=== PATIENT | female | born 1960 | race Caucasian/White ===

== ENCOUNTER 2018-07-23 09:28 | Inpatient (IN) | payer BC, OTHER ==
[2018-07-23 09:45] LABS: #Basophils 0.1 thou/uL (0.0-0.2); #Eosinphils 0.3 thou/uL (0.0-0.7); #Lymphocytes 2.1 thou/uL (1.20-3.40); #Monocytes 0.5 thou/uL (0.11-0.59); #Neutrophils 1.9 thou/uL (1.40-6.50); %Basophils 1.2 % (0.0-1.0); %Lymphocytes 43.6 % (21.0-51.0); %Monocytes 9.5 % (0.0-10.0); %Neutrophils 39.7 % (42.0-75.0); Hemoglobin 13.4 g/dL (12.0-16.0); Mean Corpuscular HGB CONC 33.5 g/dL (32.0-36.0); Mean Corpuscular Hemoglobin 30.8 pg (27.0-31.0); Mean Corpuscular Volume 91.8 fL (78.0-98.0); Mean Platelet Volume 7.6 fL (7.4-10.4); Platelet Count 230 thou/uL (130-400); RBC Distribution Width 11.3 % (11.5-14.5); Red Blood Cell (RBC) Count 4.35 mill/uL (4.20-5.40); White Blood Cell (WBC) Count 4.7 thou/uL (4.8-10.8)
[2018-07-23 09:52] LABS: PTT 33.1 SEC (22.9-36.1)
[2018-07-23] MEDS ORDERED: Succinylcholine Chloride 20 MG/ML 10 ml SYRINGE FS ONE (09:52)
[2018-07-23] MEDS ORDERED: Glycopyrrolate 0.2 MG/ML 5 ML SYRINGE ONE (09:52)
[2018-07-23] MEDS ORDERED: Rocuronium Bromide 10 MG/ML (10ML VIAL) ONE (09:52)
[2018-07-23] MEDS ORDERED: Ondansetron PF 4 MG/2 ML Vial ONE (09:52)
[2018-07-23] MEDS ORDERED: ePHEDrine 50 MG/ML VIAL ONE (09:52)
[2018-07-23] MEDS ORDERED: PROPOFOL 200 MG/20 ML VIAL ONE (09:52)
[2018-07-23] MEDS ORDERED: Lidocaine 1% PF 5 ML VIAL ONE (09:52)
[2018-07-23 10:01] LABS: ALT (SGPT) 11 U/L (8-55); AST (SGOT) 21 U/L (5-34); Albumin 4.2 g/dL (3.5-5.0); Alkaline Phosphatase 44 U/L (40-150); Anion Gap 13 mmol/L (10-20); BUN (Urea Nitrogen) 20 mg/dL (9.8-20.1); Bilirubin, Total 0.7 mg/dL (0.2-1.2); CK (CPK) 99 U/L (29-168); Calc. Creatinine Clearance 0 mL/min (70-130); Calcium 9.7 mg/dL (7.8-10.44); Carbon Dioxide 24 mmol/L (22-29); Chloride 105 mmol/L (98-107); Estimated GFR-MDRD 70; Glucose 81 mg/dL (70-105); Potassium 4.4 mmol/L (3.5-5.1); Protein, Total 7.2 g/dL (6.0-8.3); Sodium 138 mmol/L (136-145)
--- NOTE | 2018-07-23 10:08 | CT ---
CT HEAD WITH AND WITHOUT CONTRAST WITH CT PERFUSION IMAGES: Date: INDICATION: Dense right hemiparesis. CTA from [facility] revealed a left M1 thrombus. Patient was ref erred here for perfusion study prior to intervention. FINDINGS/IMPRESSION: CT HEAD WITHOUT CONTRAST: There is sulcal effacement and mild cytotoxic edema involving the left frontal and parietal lobes, pr imarily in the parasylvian region, indicating early changes of infarct. No hemorrhage or mass effect. CT PERFUSION: CTA perfusion studies were performed with IV contrast. Mean transit images show images of ischemic involving left frontal and parietal lobes. The degree of ischemia involves significant portion of the left cerebral hemisphere and the left middle cerebral ar sandhya distribution. The blood volume images indicate infarct. There is evidence of infarct primarily involving the left f rontal lobe in the parasylvian locations and portions of the left parietal lobe cortex. When the penumbra is assessed as difference between blood volume and mean transit, there appears to b e significant penumbra primarily involving the left parietal lobe cortex. Findings were discussed with Dr. Chavis. CODE CR. POS: [facility]
[2018-07-23] MEDS ORDERED: Mag-Al 1200 mg/1200 mg/30 ML UDCUP PO PRN (10:56)
[2018-07-23] MEDS ORDERED: Labetalol HCl 100 MG/20 ML VIAL SLOW IVP PRN (10:56)
[2018-07-23] MEDS ORDERED: [UNRECOGNIZED DRUG - REMARK] FS SCH (10:56)
[2018-07-23] MEDS ORDERED: Acetaminophen 325 MG TAB PO PRN (10:56)
--- NOTE | 2018-07-23 11:17 | PRG ---
DATE OF SERVICE: 07/23/2018 SUBJECTIVE: Ms. Arauz is a 57-year-old female, who presented to the [facility] [place] [facility] with right dense hemiparesis. Her last known normal at that time was 12 hours. She underwent a noncontrast head CT, which was negative for hemorrhage. She then underwent a CT angiogram, which revealed presence of occlusion of the left middle cerebral artery on the left side. She was then transferred to [facility] for mechanical thrombectomy. At that time, she underwent a CT perfusion study which showed salvageable penumbra. She was then sent down to the orthodontic lab technician, where she was intubated and subsequently underwent mechanical thrombectomy with orthodoxy of blood flow. At this time, we have limited medical history. She will be transferred to the ICU. I have consulted the hospitalist service for appropriate medical management and stroke risk stratification. CT examination is planned for later this afternoon. Job ID: [id number]
[2018-07-23] MEDS ORDERED: Iopamidol 370 76% 100 ML VIAL ONE (11:21)
[2018-07-23] MEDS ORDERED: Aspirin 300 MG Suppository PR SCH (12:00)
[2018-07-23] MEDS: Sodium Chloride 0.9% 1,000 ML IV SCH ×2 (12:39→23:33)
[2018-07-23] MEDS: Multivitamins, Adult 10 ML, Folic Acid 1 MG, Thiamine HCl 100 MG in Dextrose 5 %-0.45 %... IV SCH (14:19)
--- NOTE | 2018-07-23 14:23 | CON ---
DATE OF CONSULTATION: Consultation from Dr. Joshua Chavis. PRIMARY CARE PROVIDER: Unknown. REASON FOR CONSULTATION: Post thrombectomy of left middle cerebral artery. HISTORY OF PRESENT ILLNESS: The patient was nonverbal at 6:00 a.m. Significant other thought she was just tired. After 7:00, he checked she was still not verbal even though she was awake. EMS was called. She was taken [facility], life-flighted here, underwent thrombectomy by Dr. Joshua Chavis. She is currently in intensive care unit. She is awake. Her eyes are open. The only associated symptom is one of the witnesses said she seemed to be mildly confused about something yesterday, but was not aphasic and showed no focal neurologic defects. REVIEW OF SYSTEMS: Otherwise unobtainable. The patient is nonverbal and the informants present are unaware of any problems she was having. PAST MEDICAL HISTORY: Pertinent for hypertension, seasonal allergies, anxiety, depression, gastroesophageal reflux disease. She is currently on lisinopril 20/25 once a day, estradiol 0.5 mg a day, Protonix 40 mg a day, Celexa 40 mg a day. ALLERGIES: NO ALLERGIES. PAST SURGICAL HISTORY: Right shoulder surgery 2 years ago. FAMILY AND SOCIAL HISTORY: She is an [facility], all of her family, except for her children who live there. There is some conversation that the strokes run on her father's side. She has two daughters here with no medical diseases. The patient has a significant other, Cristian Maza. Her oldest daughter, Cora Arauz, is the responsible alliance party at this time. Her code status is full. The patient's smoking history; she smoked from 15 to 44, but has not smoked in the last 13 years. She drinks 6-pack of beers a day. No illicit drugs. PHYSICAL EXAMINATION: VITAL SIGNS: Current blood pressure 124/83, pulse 60, respirations 16, O2 saturation of 100. HEENT: Examination of her head, eyes, ears, nose, and throat revealed pupils equal, round, and reactive. Extraocular movements grossly intact, but there does not seem to be full motion to the right as to the left. Sclerae are white. Tympanic membranes are clear. Nose is clear. Oral mucous membranes are wet. I could not get her to open her mouth for better exam. NECK: No jugular venous distention, adenopathy, or thyromegaly. CHEST: Clear to auscultation and percussion. HEART: Has a regular rate and rhythm. First and second heart sounds are clear. There are no appreciated murmurs or gallops. ABDOMEN: Soft. Bowel sounds are normal. There is no hepatosplenomegaly. No mass. No rebound. No bruits. EXTREMITIES: Reveal no cyanosis, clubbing, or edema. SKIN: Warm and dry without bruises or rash. HEME/LYMPH: There is no tender or swollen lymph nodes in the axilla, inguinal, or cervical area. No petechial hemorrhages. PULSES: Carotid, radial, femoral, and dorsalis pedis pulses intact. NEUROLOGIC: There is question of a mild central 7th on the right. The right arm has minimal tone and does not seem to move much spontaneously. Left arm has good tone, moves spontaneously. Deep tendon reflexes are symmetric. Tone in both right and left leg seem to be the same. She has downgoing toes bilateral to plantar response. She has receptive and expressive aphasia. DIAGNOSTIC STUDIES: EKG reveals regular sinus rhythm. She has [address] elevation consistent with early repolarization syndrome, otherwise normal, reviewed by me. CTA of the head and neck; there was edema of the left parieto-frontal lobes, reviewed by me. LABORATORY DATA: Metabolic profile is normal. INR is normal. White count is 4.7, platelet count is 230,000, hemoglobin is 13.4. CURRENT MEDICATIONS: Aspirin 325 mg p.o. daily, Lipitor 40 mg p.o. daily. She is on labetalol for blood pressure control, less than 100 diastolic and less than 180 systolic. ADMITTING DIAGNOSES: Left middle cerebral artery cerebrovascular accident, post embolectomy; receptive and expressive aphasia; hypertension; anxiety; depression; alcohol abuse. 1. Thank you for the consult. We will follow with you. 2. Because of her alcohol use, we will monitor for withdrawal syndrome. Banana bag will be started daily now. Continue aspirin. Transition antihypertensives to p.o. as tolerated. She will, of course, need a swallowing study by Speech Therapy before proceeding with oral medicines. Job ID: [id number]
[2018-07-23] MEDS ORDERED: ISOVUE-370 76%-LOCM 1 ML ONE (14:27)
--- NOTE | 2018-07-23 16:13 | CT ---
FCT brain noncontrast: 07/23/2018 3:59 PM HISTORY: 57-year-old female with acute left middle cerebral artery large territorial cerebral infarction. Rece ntly status post thrombectomy via catheter. Dr. Mathews reported the findings by telephone to Dr. Jass wolfe at 4:03 PM on 07/15/2018 COMPARISON: 07/23/2018 9:34 AM noncontrast portion of CT FINDINGS: There is a new ill-defined, moderately dense approximately 2 cm focus of acute intra-axial hemorrhage in the left basal ganglia. Nearby, there is acute subarachnoid spillage of hemorrhage in the left sy lvian fissure. There has been slight interval progression of diffuse effacement of sulcal markings th roughout much of the left cerebral hemisphere due to cytotoxic edema. New finding of mild indentation upon the lateral aspect of the frontal horn of the left lateral ventricle by component of acute infa rction at the left caudate head.. No obstructive hydrocephalus. No midline shift. IMPRESSION: 1. Evolution of acute large left middle cerebral artery territory cerebral infarction, with mild inte rval worsening of effacement of sulci due to cytotoxic edema. 2. Hemorrhagic conversion of the infarction at the left basal ganglia, plus some spillage of blood in to the left sylvian fissure subarachnoid space. 3. No subfalcine herniation.
--- NOTE | 2018-07-23 20:22 | CON ---
DATE OF CONSULTATION: 07/23/2018 CONSULTING PHYSICIAN: Hospitalist Service. IMPRESSION: Left middle cerebral artery stroke with improving right hemiparesis and residual expressive aphasia. PLAN: 1. Aspirin. 2. Statin. 3. Echocardiogram. 4. Follow clinical course. HISTORY OF PRESENT ILLNESS: Ms. Arauz is a 57-year-old, healthy, middle-aged woman, who presented with acute onset of right-sided weakness and expressive aphasia. She was taken to [facility] by Dr. Chavis and underwent thrombectomy. She has shown improvement in her right arm strength. Her reports she is initially flaccid and now she has antigravity strength. Her followup CT scan of the brain has been performed, but the results are pending. PAST MEDICAL HISTORY: Hypertension. ALLERGIES: NONE REPORTED. SOCIAL HISTORY: She has a distant history of tobacco use. FAMILY HISTORY: Positive. REVIEW OF SYSTEMS: Not obtainable due to her aphasia. PHYSICAL EXAMINATION: GENERAL: She is a healthy-appearing middle-aged woman, in no acute distress. VITAL SIGNS: Pulse 64, respirations 16, blood pressure 98/57. HEENT: Pupils are equal. Conjunctivae are clear. Oral pharynx clear. NECK: Supple. EXTREMITIES: No cyanosis, clubbing, or edema. NEUROLOGIC: She is alert and cooperative. She is completely expressively aphasic. She followed commands in appropriate fashion though. Cranial nerves appear to be intact. Motor exam showed antigravity strength in both arms without drift. Gait was not testable. No abnormal movements were seen. Plantar responses were downgoing. LABORATORY DATA: EKG shows normal sinus rhythm. SUMMARY: Unfortunate middle-aged woman, who has a thrombus in the left MCA vessel resulting in her deficits. The underlying cause is a bit unknown at this point, could have been a congenital stenosis versus very localized thrombosis. Agree with current management. Job ID: [id number]
[2018-07-23] MEDS: Atorvastatin Calcium 40 MG TAB PO SCH (20:24)
[2018-07-24] MEDS: Sodium Chloride 0.9% 1,000 ML IV SCH (04:36)
[2018-07-24 05:08] LABS: Cardiac Risk 2.9 (Less than 4.5)
[2018-07-24 05:30] LABS: Anion Gap 11 mmol/L (10-20); BUN (Urea Nitrogen) 10 mg/dL (9.8-20.1); Calc. Creatinine Clearance 87 mL/min (70-130); Calcium 8.5 mg/dL (7.8-10.44); Carbon Dioxide 22 mmol/L (22-29); Chloride 111 mmol/L (98-107); Estimated GFR-MDRD 75; Glucose 106 mg/dL (70-105); Potassium 3.8 mmol/L (3.5-5.1); Sodium 140 mmol/L (136-145)
--- NOTE | 2018-07-24 06:59 | PRG ---
DATE OF SERVICE: 07/24/2018 SUBJECTIVE: Ms. Arauz is one day status post mechanical thrombectomy for a left middle cerebral artery occlusion secondary to thrombus. She has made a dramatic recovery as compared to her baseline state. She had evidence of reperfusion hemorrhage on yesterday's CT scan, that was repeated this morning, which shows normal evolution of the hemorrhagic products with no evidence for additional bleeding. She does have an area of hypodensity suggestive of infarct as well. I believe this is an asymptomatic reperfusion hemorrhage given the overall dramatic improvement in her exam. She continues to struggle predominantly with expressive aphasia, but she does have some components of receptive aphasia as well. She has good strength bilaterally in the upper and lower extremities, which is a substantial improvement over her strength level at the time of admission. She should undergo further swallow evaluation today. From my perspective, she can be transferred out of the unit to the stroke unit. She should start to mobilize with the aid of physical therapy. She should also have speech therapy as well. Job ID: [id number]
--- NOTE | 2018-07-24 07:39 | CT ---
CT OF THE BRAIN WITHOUT CONTRAST: Date: 07/24/18 INDICATION: Status post thrombectomy and CVA. COMPARISON: Prior CT of the brain dated 07/23/18. FINDINGS: There is intraparenchymal hemorrhage seen within the region of the anterior left globus pallidus servando uring 1.8 cm. This is stable since the prior exam. There is subarachnoid hemorrhage seen within the l eft sylvian fissure. There is also some mild subarachnoid hemorrhage involving the sulci overlying th e left frontoparietal cortex. There is hypodensity with loss of godinez-white differentiation involving portions of the left frontal cortex, anterior left insular cortex, and anterior left temporal lobe an d portions of the anterior left parietal lobe. There is also hypodensity involving the left caudate l obe. Findings are all suspicious for changes of evolution of the left MCA distribution infarct. There is also cytotoxic edema causing some mild sulcal effacement of the left frontal and parietal cortex. No hydrocephalus or midline shift is evident. Basilar cisterns remain patent. There is mucosal thick ening within the ethmoid air cells which is stable. IMPRESSION: 1. Evolutionary changes of the large left MCA distribution infarct. 2. Stable intraparenchymal hemorrhage involving the left basal ganglia. 3. Stable subarachnoid hemorrhage within the left sylvian fissure and sulci of the left frontopariet al region. POS: [facility]
[2018-07-24] MEDS ORDERED: Acetaminophen 650 MG Suppository PR PRN (08:20)
[2018-07-24] MEDS ORDERED: Eucerin (Mineral Oil/Petrolatum,White) 30 gm Jar TOP PRN (08:20)
[2018-07-24] MEDS ORDERED: Artificial Tears 18 DROP/0.9 ML EA EYE PRN (08:20)
[2018-07-24] MEDS ORDERED: Sodium Chloride 0.65% Nasal 44 ML BOT EA NARE PRN (08:20)
[2018-07-24] MEDS ORDERED: Bisacodyl 10 MG SUPP PR PRN (08:20)
[2018-07-24] MEDS ORDERED: Aspirin 300 MG Suppository PR SCH (09:00)
[2018-07-24] MEDS: Aspirin 325 mg Enteric Coated Tablet PO SCH (10:36)
[2018-07-24] MEDS: Aspirin 300 MG Suppository PR SCH (10:37)
[2018-07-24] MEDS: Multivitamins, Adult 10 ML, Folic Acid 1 MG, Thiamine HCl 100 MG in Dextrose 5 %-0.45 %... IV SCH (10:37)
--- NOTE | 2018-07-24 10:40 | PDOC.PN ---
- Subjective Encounter Start Date: 07/24/18 Encounter Start Time: 09:00 -: old records requested/rev pt is doing ok, as per she has much improvement, she has aphasia, her weakness improving, she passed swallow evaluation - Objective MAR Reviewed: Yes Vital Signs & Weight: Vital Signs (12 hours) Temp Pulse Ox 07/24/18 08:30 96 07/24/18 08:00 98 07/24/18 03:00 98.2 F 07/23/18 23:00 98.3 F Weight Weight 157 lb 6.561 oz Most Recent Monitor Data Heart Rate from ECG 75 NIBP 143/83 NIBP BP-Mean 103 Respiration from ECG 25 SpO2 93 I&O: 07/23/18 07/24/18 07/25/18 06:59 06:59 06:59 Intake Total 1819 Output Total 750 230 Balance 1069 -230 Result Diagrams: 07/23/18 09:32 07/24/18 04:24 Radiology Reviewed by me: Yes (CT brain reviewed) EKG Reviewed by me: Yes (NSR) Phys Exam - Physical Examination Constitutional: NAD HEENT: PERRLA, moist MMs, sclera anicteric Neck: no JVD, supple Respiratory: no wheezing, no rales, no rhonchi Cardiovascular: RRR, no significant murmur, no rub Gastrointestinal: soft, non-tender, no distention, positive bowel sounds Musculoskeletal: no edema, 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 Neurological: moves all 4 limbs Lymphatic: no nodes Psychiatric: normal affect Skin: no rash, normal turgor Dx/Plan (1) Left acute arterial ischemic stroke, MCA (middle cerebral artery) Code(s): I63.512 - CEREB INFRC D/T UNSP OCCLS OR STENOS OF LEFT MID CEREB ART Status: Acute (2) Anxiety and depression Code(s): F41.9 - ANXIETY DISORDER, UNSPECIFIED; F32.9 - MAJOR DEPRESSIVE DISORDER, SINGLE EPISODE, UNSPECIFIED Status: Chronic (3) Dyslipidemia Code(s): E78.5 - HYPERLIPIDEMIA, UNSPECIFIED Status: Chronic (4) GERD (gastroesophageal reflux disease) Code(s): K21.9 - GASTRO-ESOPHAGEAL REFLUX DISEASE WITHOUT ESOPHAGITIS Status: Chronic (5) Hypertension Code(s): I10 - ESSENTIAL (PRIMARY) HYPERTENSION Status: Chronic - Plan cont current plan of care, plan discussed w/ family, PT/OT, speech therapy, DVT proph w/SCDs * once neurosurgeon OK, will transfer to stroke floor * continue stroke team evaluation * discussed with * medication reviewed as below * symptomatic treatment * may need rehab on discharge * will adjust BP meds. * start diet when neurosurgery OK Review of Systems - Review of Systems ENT: negative: Ear Pain, Ear Discharge, Nose Pain, Nose Discharge, Nose Congestion, Mouth Pain, Mouth Swelling, Throat Pain, Throat Swelling, Other Respiratory: negative: Cough, Dry, Shortness of Breath, Hemoptysis, SOB with Excertion, Pleuritic Pain, Sputum, Wheezing Cardiovascular: negative: chest pain, palpitations, orthopnea, paroxysmal nocturnal dyspnea, edema, light headedness, other Gastrointestinal: negative: Nausea, Vomiting, Abdominal Pain, Diarrhea, Constipation, Melena, Hematochezia, Other Genitourinary: negative: Dysuria, Frequency, Incontinence, Hematuria, Retention , Other Musculoskeletal: negative: Neck Pain, Shoulder Pain, Arm Pain, Back Pain, Hand Pain, Leg Pain, Foot Pain, Other Neurological: Change in Speech. negative: Weakness, Numbness, Incoordination, Confusion, Seizures, Other - Medications/Allergies Allergies/Adverse Reactions: Allergies Allergy/AdvReac Type Severity Reaction Status Date / Time No Known Allergies Allergy Verified 07/23/18 12:45 Medications: Current Medications Acetaminophen (Tylenol) 650 mg PO Q6H PRN PRN Reason: Headache/Fever/Mild Pain (1-3) Acetaminophen (Tylenol) 650 mg AK Q4H PRN PRN Reason: Fever > 101 Al Hydroxide/Mg Hydroxide (Maalox) 30 ml PO QID-WM PRN PRN Reason: Dyspepsia Artificial Tears (Tears Naturale) 2 drop EA EYE PRN PRN PRN Reason: Dry Eyes Aspirin (Ecotrin) 325 mg PO DAILY [facility] Last Admin: 07/24/18 10:36 Dose: 325 mg Aspirin (Aspirin) 300 mg AK DAILY [facility] Last Admin: 07/24/18 10:37 Dose: Not Given Atorvastatin Calcium (Lipitor) 40 mg PO HS [facility] Last Admin: 07/23/18 20:24 Dose: Not Given Bisacodyl (Dulcolax) 10 mg AK DAILYPRN PRN PRN Reason: Constipation Nicardipine HCl 25 mg/ Sodium (Chloride) 260 mls @ 0 mls/hr IVPB INF PRN; Protocol PRN Reason: SBP > 180 or DBP > 105 Sodium Chloride (Normal Saline 0.9%) 1,000 mls @ 80 mls/hr IV .[id number] [facility] Last Admin: 07/24/18 04:36 Dose: 1,000 mls Multivitamins 10 ml/ Folic Acid 1 mg/ Thiamine HCl 100 mg / Dextrose/Sodium Chloride 1,011.2 mls @ 250 mls/hr IV Q24HR [facility] Last Admin: 07/24/18 10:37 Dose: 1,011.2 mls Labetalol HCl (Normodyne) 10 mg SLOW IVP Q2H PRN PRN Reason: SBP > 180 or DBP > 105 Mineral Oil/White Petrolatum (Eucerin Cream) 0 gm TOP BIDPRN PRN PRN Reason: Dry Skin Sodium Chloride (Flush - Normal Saline) 10 ml IVF Q12HR [facility] Last Admin: 07/23/18 20:24 Dose: 10 ml Sodium Chloride (Flush - Normal Saline) 10 ml IVF PRN PRN PRN Reason: Saline Flush Sodium Chloride (Cameron Nasal Becket 0.65%) 0 ml EA NARE QIDPRN PRN PRN Reason: Nasal Congestion
--- NOTE | 2018-07-24 16:39 | CON ---
DATE OF CONSULTATION: 07/24/2018 SERVICE: Pulmonary Medicine. REASON FOR CONSULT: ICU patient. HISTORY OF PRESENT ILLNESS: The patient is a 57-year-old white female with past medical history significant for hypertension. She was in her usual state of health until she had an abrupt onset of neurologic symptoms. She became nonverbal. She also had left-sided weakness. She presented to the emergency department. She was inside of a window for thrombectomy. As such, she proceeded with that procedure. This was a successful procedure. All that being said, she has persistent neurologic deficits on the left side, and is having difficulties with speech. She cannot provide much in the way of history. Prior to this event, she did not have any fevers, chills, shortness of breath, cough, sputum production, or night sweats. PAST MEDICAL HISTORY: 1. Hypertension. 2. Anxiety disorder. 3. Major depressive disorder. 4. Gastroesophageal reflux disease. 5. Seasonal allergies. 6. History of CVA. PAST SURGICAL HISTORY: 1. Right shoulder surgery 2 years ago. 2. Right MCA thrombectomy. ALLERGIES: NO KNOWN DRUG ALLERGIES. MEDICATIONS: List of her inpatient medications was reviewed. No specific updates were made at this time. FAMILY HISTORY: Noncontributory. SOCIAL HISTORY: She has about a 69-[id number] history of smoking, but quit over 10 years ago. She drinks 6 pack on a daily basis. Otherwise, she denies any illicit drugs. She has no exposure to chemicals, dust, asbestos, or tuberculosis. REVIEW OF SYSTEMS: General; head, ears, eyes, nose, and throat; cardiovascular; respiratory; GI; ; musculoskeletal; neurologic; and skin are negative except as mentioned in the HPI. PHYSICAL EXAMINATION: VITAL SIGNS: Afebrile, pulse 72, blood pressure 157/82, respirations 21, and saturation 94% on 2 L nasal cannula. HEENT: Normocephalic and atraumatic. Sclerae are white. Conjunctivae are pink. Oral mucosa is moist without lesions. LUNGS: Decent air entry. There is a prolonged expiratory phase. No wheezing or crackles are appreciated. HEART: Normal rate, regular. ABDOMEN: Soft, nontender, and nondistended. Bowel sounds are positive. MUSCULOSKELETAL: No cyanosis or clubbing. There is no pitting in bilateral lower extremities. NEUROLOGIC: She has weakness in the left upper extremity. Bilateral lower extremity strength is intact. Her speech is impaired, though she has very good understanding. She cannot repeat. LABORATORY DATA: WBC 4.7, hemoglobin 13.4, and platelets 230,000. INR 1.0. Basic metabolic profile and liver function studies are unremarkable. Troponin is negative x1. IMAGING DATA: 1. CTA of the neck with perfusion demonstrates ischemic involvement of the left frontal and parietal lobes. Significant penumbra is noted in the left parietal cortex. 2. CT of the head from this morning demonstrates stable areas of intraparenchymal hemorrhage, and subarachnoid hemorrhage within the left sylvian fissure. Evolutionary changes of the large left MCA is present. ASSESSMENT: 1. Acute cerebrovascular accident, status post thrombectomy, postop day 1. 2. Hypertension. DISCUSSION AND PLAN: The patient is hemodynamically stable for transition to the floor. That being said, she does have a subarachnoid hemorrhage and an intraparenchymal bleed, which are stable based on the CT finding. I would not be upset about whole monitor for closed neuro evaluation for the next 24 hours, but if she does well, she can be considered for transition to the floor. Pulmonary/Critical Care will continue to follow along in this location. 70 minutes have been devoted to this patient in various activities. I personally reviewed all imaging studies and laboratory data noted within this document. For fifty percent of this time, I was interacting with the patient at the bedside or coordinating care with the care team. For the remainder of the time I was immediately available to the patient in the hospital unit. Job ID: [id number] [id number]
[2018-07-24] MEDS: Atorvastatin Calcium 40 MG TAB PO SCH (21:37)
[2018-07-25] MEDS: Sodium Chloride 0.9% 1,000 ML IV SCH (01:47)
[2018-07-25] MEDS ORDERED: Ondansetron ODT 4 MG TAB PO PRN (07:34)
[2018-07-25] MEDS ORDERED: Ondansetron PF 4 MG/2 ML Vial IVP PRN (07:34)
[2018-07-25] MEDS ORDERED: Diabetic Tussin 200 MG/10 ML UDCUP PO PRN (07:34)
[2018-07-25] MEDS ORDERED: Cepastat Lozenges 1 LOZ PO PRN (07:34)
[2018-07-25] MEDS ORDERED: Calcium Carbonate 500 MG ChewTAB PO PRN (07:34)
[2018-07-25] MEDS ORDERED: Loperamide HCl 2 MG CAP PO PRN (07:34)
[2018-07-25] MEDS ORDERED: Zolpidem Tartrate 5 MG TAB PO PRN (07:34)
[2018-07-25] MEDS: Aspirin 325 mg Enteric Coated Tablet PO SCH (09:07)
[2018-07-25] MEDS: Aspirin 300 MG Suppository PR SCH (09:07)
[2018-07-25] MEDS ORDERED: Aspirin 325 MG TAB PO SCH (09:45)
[2018-07-25] MEDS: Lisinopril/Hydrochlorothiazide 20 mg/12.5 mg Tablet PO SCH (09:56)
[2018-07-25] MEDS: Citalopram 20 MG TAB PO SCH (09:57)
[2018-07-25] MEDS: Estradiol 1 MG TAB PO SCH (09:57)
--- NOTE | 2018-07-25 10:16 | PDOC.PN ---
- Subjective Encounter Start Date: 07/25/18 Encounter Start Time: 07:30 Patient seen and examined. No new complaints. No overnight events - Objective MAR Reviewed: Yes Vital Signs & Weight: Vital Signs (12 hours) Temp Pulse Resp BP BP BP Pulse Ox 07/25/18 09:56 60 170/97 H 07/25/18 07:51 98.8 F 60 18 170/97 H 94 L 07/25/18 04:00 98.4 F 65 16 145/86 H 95 07/25/18 00:00 99.4 F 75 16 168/98 H 94 L Weight Weight 157 lb 6.561 oz Most Recent Monitor Data Heart Rate from ECG 67 NIBP 156/93 NIBP BP-Mean 114 Respiration from ECG 20 SpO2 95 I&O: 07/24/18 07/25/18 07/26/18 06:59 06:59 06:59 Intake Total 1819 2349 Output Total 750 1300 Balance 1069 1049 Result Diagrams: 07/23/18 09:32 07/24/18 04:24 EKG Reviewed by me: Yes Phys Exam - Physical Examination Constitutional: NAD HEENT: PERRLA, moist MMs, sclera anicteric Neck: no JVD, supple Respiratory: no wheezing, no rales, no rhonchi Cardiovascular: RRR, no significant murmur, no rub Gastrointestinal: soft, non-tender, no distention, positive bowel sounds Musculoskeletal: no edema, pulses present Neurological: moves all 4 limbs aphasia+ Lymphatic: no nodes Psychiatric: normal affect Skin: no rash, normal turgor Dx/Plan (1) Left acute arterial ischemic stroke, MCA (middle cerebral artery) Code(s): I63.512 - CEREB INFRC D/T UNSP OCCLS OR STENOS OF LEFT MID CEREB ART Status: Acute (2) Anxiety and depression Code(s): F41.9 - ANXIETY DISORDER, UNSPECIFIED; F32.9 - MAJOR DEPRESSIVE DISORDER, SINGLE EPISODE, UNSPECIFIED Status: Chronic (3) Dyslipidemia Code(s): E78.5 - HYPERLIPIDEMIA, UNSPECIFIED Status: Chronic (4) GERD (gastroesophageal reflux disease) Code(s): K21.9 - GASTRO-ESOPHAGEAL REFLUX DISEASE WITHOUT ESOPHAGITIS Status: Chronic (5) Hypertension Code(s): I10 - ESSENTIAL (PRIMARY) HYPERTENSION Status: Chronic - Plan cont current plan of care, PT/OT, speech therapy * dc gage * dc IVF * diet as tolerated * start lisinopril and HCTZ * medication reviewed as below * symptomatic treatment. Review of Systems - Review of Systems ENT: negative: Ear Pain, Ear Discharge, Nose Pain, Nose Discharge, Nose Congestion, Mouth Pain, Mouth Swelling, Throat Pain, Throat Swelling, Other Respiratory: negative: Cough, Dry, Shortness of Breath, Hemoptysis, SOB with Excertion, Pleuritic Pain, Sputum, Wheezing Cardiovascular: negative: chest pain, palpitations, orthopnea, paroxysmal nocturnal dyspnea, edema, light headedness, other Gastrointestinal: negative: Nausea, Vomiting, Abdominal Pain, Diarrhea, Constipation, Melena, Hematochezia, Other Genitourinary: negative: Dysuria, Frequency, Incontinence, Hematuria, Retention , Other Musculoskeletal: negative: Neck Pain, Shoulder Pain, Arm Pain, Back Pain, Hand Pain, Leg Pain, Foot Pain, Other Skin: negative: Rash, Lesions, Gerard, Bruising, Other Neurological: Change in Speech. negative: Weakness, Numbness, Incoordination, Confusion, Seizures, Other - Medications/Allergies Allergies/Adverse Reactions: Allergies Allergy/AdvReac Type Severity Reaction Status Date / Time No Known Allergies Allergy Verified 07/23/18 12:45 Medications: Current Medications Acetaminophen (Tylenol) 650 mg PO Q6H PRN PRN Reason: Headache/Fever/Mild Pain (1-3) Acetaminophen (Tylenol) 650 mg RI Q4H PRN PRN Reason: Fever > 101 Artificial Tears (Tears Naturale) 2 drop EA EYE PRN PRN PRN Reason: Dry Eyes Aspirin (Aspirin) 300 mg RI DAILY [facility] Last Admin: 07/25/18 09:07 Dose: Not Given Aspirin (Aspirin) 325 mg PO DAILY [facility] Aspirin (Aspirin) 325 mg PO ONE [facility] Stop: 07/25/18 11:00 Atorvastatin Calcium (Lipitor) 40 mg PO HS [facility] Last Admin: 07/24/18 21:37 Dose: 40 mg Bisacodyl (Dulcolax) 10 mg RI DAILYPRN PRN PRN Reason: Constipation Calcium Carbonate (Tums) 1,000 mg PO Q4H PRN PRN Reason: Heartburn or Indigestion Citalopram Hydrobromide (Celexa) 40 mg PO DAILY [facility] Last Admin: 07/25/18 09:57 Dose: 40 mg Estradiol (Estrace) 0.5 mg PO DAILY [facility] Last Admin: 07/25/18 09:57 Dose: 0.5 mg Guaifenesin (Robitussin Sf) 200 mg PO Q4H PRN PRN Reason: Cough Lisinopril/HCTZ (Prinizide 20-12.5) 1 tab PO DAILY [facility] Last Admin: 07/25/18 09:56 Dose: 1 tab Labetalol HCl (Normodyne) 10 mg SLOW IVP Q2H PRN PRN Reason: SBP > 180 or DBP > 105 Last Admin: 07/24/18 22:00 Dose: 10 mg Loperamide HCl (Imodium) 2 mg PO PRN PRN PRN Reason: Diarrhea/Loose Stools Mineral Oil/White Petrolatum (Eucerin Cream) 0 gm TOP BIDPRN PRN PRN Reason: Dry Skin Ondansetron HCl (Zofran Odt) 4 mg PO Q6H PRN PRN Reason: Nausea/Vomiting Ondansetron HCl (Zofran) 4 mg IVP Q6H PRN PRN Reason: Nausea/Vomiting Pantoprazole Sodium (Protonix) 40 mg PO DAILY [facility] Last Admin: 07/25/18 09:56 Dose: 40 mg Sodium Chloride (Flush - Normal Saline) 10 ml IVF Q12HR [facility] Last Admin: 07/25/18 09:57 Dose: Not Given Sodium Chloride (Flush - Normal Saline) 10 ml IVF PRN PRN PRN Reason: Saline Flush Sodium Chloride ([place] Nasal [place] 0.65%) 0 ml EA NARE QIDPRN PRN PRN Reason: Nasal Congestion Throat Lozenges (Cepastat Lozenges) 1 thomas PO Q2H PRN PRN Reason: Sore Throat Zolpidem Tartrate (Ambien) 5 mg PO HSPRN PRN PRN Reason: Insomnia
[2018-07-25] MEDS ORDERED: hydrALAZINE 20 MG/ML VIAL SLOW IVP PRN (16:25)
--- NOTE | 2018-07-25 17:27 | PRG ---
DATE OF SERVICE: 07/25/2018 SERVICE: Pulmonary Medicine. INTERVAL HISTORY: The patient is doing okay from respiratory standpoint. She is on room air. Denies any current chest pain, shortness of breath, fevers, or chills. She is following some command, but had some delay to her following those commands. Her understanding is a little bit lacking. Her speech is still significantly impaired. Otherwise, she is progressing fairly well. PHYSICAL EXAMINATION: VITAL SIGNS: Afebrile, pulse 53, blood pressure 190/94, respirations 18, saturation 97% on room air. GENERAL: The patient is awake, alert, in no apparent distress. LUNGS: Decent air entry. No prolonged expiratory phase or wheezing appreciated. HEART: Normal rate and regular. ABDOMEN: Soft, nontender, nondistended. Bowel sounds are positive. MUSCULOSKELETAL: No cyanosis or clubbing. No pitting in the bilateral lower extremities. NEUROLOGIC: Grossly nonfocal. IMAGING: Echocardiogram demonstrates normal ejection fraction with 1/3 diastolic dysfunction. ASSESSMENT: 1. Acute cerebrovascular accident, status post thrombectomy, postop day 2. 2. Hypertension. DISCUSSION AND PLAN: The patient is doing okay from a respiratory standpoint. Hemodynamically, she is stable. As such, she has no further requirements for inpatient Pulmonary Critical Care opinion, and I will sign off. If her clinical condition deteriorates, please give me a phone call. Job ID: [id number]
[2018-07-25] MEDS: Atorvastatin Calcium 40 MG TAB PO SCH (21:12)
[2018-07-26] MEDS: Aspirin 325 MG TAB PO SCH (08:37)
[2018-07-26] MEDS: Estradiol 1 MG TAB PO SCH (08:38)
[2018-07-26] MEDS: Citalopram 20 MG TAB PO SCH (08:38)
[2018-07-26] MEDS: Aspirin 300 MG Suppository PR SCH (08:39)
[2018-07-26] MEDS: Lisinopril/Hydrochlorothiazide 20 mg/12.5 mg Tablet PO SCH (08:47)
--- NOTE | 2018-07-26 10:38 | PDOC.PN ---
- Subjective Encounter Start Date: 07/26/18 Encounter Start Time: 07:00 Patient seen and examined. No new complaints. No overnight events - Objective MAR Reviewed: Yes Vital Signs & Weight: Vital Signs (12 hours) Temp Pulse Resp BP BP Pulse Ox 07/26/18 08:47 61 122/76 07/26/18 08:00 98.3 F 61 20 95 07/26/18 04:00 99.6 F 60 14 160/80 H 95 07/25/18 23:56 99.1 F 60 16 166/88 H 97 Weight Weight 157 lb 6.561 oz Most Recent Monitor Data Heart Rate from ECG 67 NIBP 156/93 NIBP BP-Mean 114 Respiration from ECG 20 SpO2 95 I&O: 07/25/18 07/26/18 07/27/18 06:59 06:59 06:59 Intake Total 2349 980 Output Total 1300 1460 Balance 1049 -480 Result Diagrams: 07/23/18 09:32 07/24/18 04:24 EKG Reviewed by me: Yes Phys Exam - Physical Examination Constitutional: NAD HEENT: PERRLA, moist MMs, sclera anicteric Neck: no JVD, supple Respiratory: no wheezing, no rales, no rhonchi Cardiovascular: RRR, no significant murmur, no rub Gastrointestinal: soft, non-tender, no distention, positive bowel sounds Musculoskeletal: no edema, pulses present Neurological: moves all 4 limbs aphasia Lymphatic: no nodes Psychiatric: normal affect Skin: no rash, normal turgor Dx/Plan (1) Left acute arterial ischemic stroke, MCA (middle cerebral artery) Code(s): I63.512 - CEREB INFRC D/T UNSP OCCLS OR STENOS OF LEFT MID CEREB ART Status: Acute (2) Anxiety and depression Code(s): F41.9 - ANXIETY DISORDER, UNSPECIFIED; F32.9 - MAJOR DEPRESSIVE DISORDER, SINGLE EPISODE, UNSPECIFIED Status: Chronic (3) Dyslipidemia Code(s): E78.5 - HYPERLIPIDEMIA, UNSPECIFIED Status: Chronic (4) GERD (gastroesophageal reflux disease) Code(s): K21.9 - GASTRO-ESOPHAGEAL REFLUX DISEASE WITHOUT ESOPHAGITIS Status: Chronic (5) Hypertension Code(s): I10 - ESSENTIAL (PRIMARY) HYPERTENSION Status: Chronic - Plan cont current plan of care, plan discussed w/ family, PT/OT, social work lecturer, speech therapy * add amlodipine 5 mg po daily * medication reviewed as below * symptomatic treatment. Review of Systems - Review of Systems ENT: negative: Ear Pain, Ear Discharge, Nose Pain, Nose Discharge, Nose Congestion, Mouth Pain, Mouth Swelling, Throat Pain, Throat Swelling, Other Respiratory: negative: Cough, Dry, Shortness of Breath, Hemoptysis, SOB with Excertion, Pleuritic Pain, Sputum, Wheezing Cardiovascular: negative: chest pain, palpitations, orthopnea, paroxysmal nocturnal dyspnea, edema, light headedness, other Gastrointestinal: negative: Nausea, Vomiting, Abdominal Pain, Diarrhea, Constipation, Melena, Hematochezia, Other Genitourinary: negative: Dysuria, Frequency, Incontinence, Hematuria, Retention , Other Musculoskeletal: negative: Neck Pain, Shoulder Pain, Arm Pain, Back Pain, Hand Pain, Leg Pain, Foot Pain, Other Skin: negative: Rash, Lesions, Gerard, Bruising, Other Neurological: Change in Speech. negative: Weakness, Numbness, Incoordination, Confusion, Seizures, Other - Medications/Allergies Allergies/Adverse Reactions: Allergies Allergy/AdvReac Type Severity Reaction Status Date / Time No Known Allergies Allergy Verified 07/23/18 12:45 Medications: Current Medications Acetaminophen (Tylenol) 650 mg PO Q6H PRN PRN Reason: Headache/Fever/Mild Pain (1-3) Last Admin: 07/25/18 11:53 Dose: 650 mg Acetaminophen (Tylenol) 650 mg NM Q4H PRN PRN Reason: Fever > 101 Amlodipine Besylate (Norvasc) 5 mg PO DAILY [facility] Artificial Tears (Tears Naturale) 2 drop EA EYE PRN PRN PRN Reason: Dry Eyes Aspirin (Aspirin) 325 mg PO DAILY [facility] Last Admin: 07/26/18 08:37 Dose: 325 mg Atorvastatin Calcium (Lipitor) 40 mg PO HS [facility] Last Admin: 07/25/18 21:12 Dose: 40 mg Bisacodyl (Dulcolax) 10 mg NM DAILYPRN PRN PRN Reason: Constipation Calcium Carbonate (Tums) 1,000 mg PO Q4H PRN PRN Reason: Heartburn or Indigestion Citalopram Hydrobromide (Celexa) 40 mg PO DAILY [facility] Last Admin: 07/26/18 08:38 Dose: 40 mg Estradiol (Estrace) 0.5 mg PO DAILY [facility] Last Admin: 07/26/18 08:38 Dose: 0.5 mg Guaifenesin (Robitussin Sf) 200 mg PO Q4H PRN PRN Reason: Cough Lisinopril/HCTZ (Prinizide 20-12.5) 1 tab PO DAILY [facility] Last Admin: 07/26/18 08:47 Dose: Not Given Hydralazine HCl (Apresoline) 10 mg SLOW IVP Q2H PRN PRN Reason: SBP>170 Last Admin: 07/25/18 16:35 Dose: 10 mg Labetalol HCl (Normodyne) 10 mg SLOW IVP Q2H PRN PRN Reason: SBP > 180 or DBP > 105 Last Admin: 07/24/18 22:00 Dose: 10 mg Loperamide HCl (Imodium) 2 mg PO PRN PRN PRN Reason: Diarrhea/Loose Stools Mineral Oil/White Petrolatum (Eucerin Cream) 0 gm TOP BIDPRN PRN PRN Reason: Dry Skin Ondansetron HCl (Zofran Odt) 4 mg PO Q6H PRN PRN Reason: Nausea/Vomiting Ondansetron HCl (Zofran) 4 mg IVP Q6H PRN PRN Reason: Nausea/Vomiting Pantoprazole Sodium (Protonix) 40 mg PO DAILY [facility] Last Admin: 07/26/18 08:38 Dose: 40 mg Sodium Chloride (Flush - Normal Saline) 10 ml IVF Q12HR [facility] Last Admin: 07/26/18 08:39 Dose: 10 ml Sodium Chloride (Flush - Normal Saline) 10 ml IVF PRN PRN PRN Reason: Saline Flush Sodium Chloride ([place] Nasal [place] 0.65%) 0 ml EA NARE QIDPRN PRN PRN Reason: Nasal Congestion Throat Lozenges (Cepastat Lozenges) 1 thomas PO Q2H PRN PRN Reason: Sore Throat Zolpidem Tartrate (Ambien) 5 mg PO HSPRN PRN PRN Reason: Insomnia
[2018-07-26] MEDS: Atorvastatin Calcium 40 MG TAB PO SCH (20:08)
[2018-07-27] MEDS: Citalopram 20 MG TAB PO SCH (09:13)
[2018-07-27] MEDS: Aspirin 325 MG TAB PO SCH (09:13)
[2018-07-27] MEDS: Estradiol 1 MG TAB PO SCH (09:13)
[2018-07-27] MEDS: Amlodipine 5 MG TAB PO SCH (09:13)
[2018-07-27] MEDS: Lisinopril/Hydrochlorothiazide 20 mg/12.5 mg Tablet PO SCH (09:14)
--- NOTE | 2018-07-27 10:48 | PDOC.PN ---
- Subjective Encounter Start Date: 07/27/18 Encounter Start Time: 07:10 Patient seen and examined. No new complaints. No overnight events - Objective MAR Reviewed: Yes Vital Signs & Weight: Vital Signs (12 hours) Temp Pulse Resp BP BP Pulse Ox 07/27/18 09:14 56 L 142/88 H 07/27/18 09:13 56 L 142/88 H 07/27/18 08:09 142/88 H 93 L 07/27/18 07:46 98.8 F 56 L 16 164/94 H 93 L 07/27/18 04:00 98.1 F 61 16 163/104 H 96 07/27/18 00:00 98.2 F 55 L 16 156/93 H 97 Weight Weight 157 lb 6.561 oz Most Recent Monitor Data Heart Rate from ECG 67 NIBP 156/93 NIBP BP-Mean 114 Respiration from ECG 20 SpO2 95 I&O: 07/26/18 07/27/18 07/28/18 06:59 06:59 06:59 Intake Total 980 840 Output Total 1460 Balance -480 840 Result Diagrams: 07/23/18 09:32 07/24/18 04:24 EKG Reviewed by me: Yes Phys Exam - Physical Examination Constitutional: NAD HEENT: PERRLA, moist MMs, sclera anicteric Neck: no JVD, supple Respiratory: no wheezing, no rales, no rhonchi Cardiovascular: RRR, no significant murmur, no rub Gastrointestinal: soft, non-tender, no distention, positive bowel sounds Musculoskeletal: no edema, pulses present Neurological: moves all 4 limbs aphasia+ Lymphatic: no nodes Psychiatric: normal affect Skin: no rash, normal turgor Dx/Plan (1) Left acute arterial ischemic stroke, MCA (middle cerebral artery) Code(s): I63.512 - CEREB INFRC D/T UNSP OCCLS OR STENOS OF LEFT MID CEREB ART Status: Acute (2) Anxiety and depression Code(s): F41.9 - ANXIETY DISORDER, UNSPECIFIED; F32.9 - MAJOR DEPRESSIVE DISORDER, SINGLE EPISODE, UNSPECIFIED Status: Chronic (3) Dyslipidemia Code(s): E78.5 - HYPERLIPIDEMIA, UNSPECIFIED Status: Chronic (4) GERD (gastroesophageal reflux disease) Code(s): K21.9 - GASTRO-ESOPHAGEAL REFLUX DISEASE WITHOUT ESOPHAGITIS Status: Chronic (5) Hypertension Code(s): I10 - ESSENTIAL (PRIMARY) HYPERTENSION Status: Chronic - Plan cont current plan of care, plan discussed w/ family, PT/OT, social media developer, speech therapy * medication reviewed as below * symptomatic treatment * rehab screen vs home. Review of Systems - Review of Systems ENT: negative: Ear Pain, Ear Discharge, Nose Pain, Nose Discharge, Nose Congestion, Mouth Pain, Mouth Swelling, Throat Pain, Throat Swelling, Other Respiratory: negative: Cough, Dry, Shortness of Breath, Hemoptysis, SOB with Excertion, Pleuritic Pain, Sputum, Wheezing Cardiovascular: negative: chest pain, palpitations, orthopnea, paroxysmal nocturnal dyspnea, edema, light headedness, other Gastrointestinal: negative: Nausea, Vomiting, Abdominal Pain, Diarrhea, Constipation, Melena, Hematochezia, Other Genitourinary: negative: Dysuria, Frequency, Incontinence, Hematuria, Retention , Other Musculoskeletal: negative: Neck Pain, Shoulder Pain, Arm Pain, Back Pain, Hand Pain, Leg Pain, Foot Pain, Other Skin: negative: Rash, Lesions, Gerard, Bruising, Other Neurological: Change in Speech. negative: Weakness, Numbness, Incoordination, Confusion, Seizures, Other - Medications/Allergies Allergies/Adverse Reactions: Allergies Allergy/AdvReac Type Severity Reaction Status Date / Time No Known Allergies Allergy Verified 07/23/18 12:45 Medications: Current Medications Acetaminophen (Tylenol) 650 mg PO Q6H PRN PRN Reason: Headache/Fever/Mild Pain (1-3) Last Admin: 07/25/18 11:53 Dose: 650 mg Acetaminophen (Tylenol) 650 mg NM Q4H PRN PRN Reason: Fever > 101 Amlodipine Besylate (Norvasc) 5 mg PO DAILY [facility] Last Admin: 07/27/18 09:13 Dose: 5 mg Artificial Tears (Tears Naturale) 2 drop EA EYE PRN PRN PRN Reason: Dry Eyes Aspirin (Aspirin) 325 mg PO DAILY [facility] Last Admin: 07/27/18 09:13 Dose: 325 mg Atorvastatin Calcium (Lipitor) 40 mg PO HS [facility] Last Admin: 07/26/18 20:08 Dose: 40 mg Bisacodyl (Dulcolax) 10 mg NM DAILYPRN PRN PRN Reason: Constipation Calcium Carbonate (Tums) 1,000 mg PO Q4H PRN PRN Reason: Heartburn or Indigestion Citalopram Hydrobromide (Celexa) 40 mg PO DAILY [facility] Last Admin: 07/27/18 09:13 Dose: 40 mg Estradiol (Estrace) 0.5 mg PO DAILY [facility] Last Admin: 07/27/18 09:13 Dose: 0.5 mg Guaifenesin (Robitussin Sf) 200 mg PO Q4H PRN PRN Reason: Cough Lisinopril/HCTZ (Prinizide 20-12.5) 1 tab PO DAILY [facility] Last Admin: 07/27/18 09:14 Dose: 1 tab Hydralazine HCl (Apresoline) 10 mg SLOW IVP Q2H PRN PRN Reason: SBP>170 Last Admin: 07/25/18 16:35 Dose: 10 mg Labetalol HCl (Normodyne) 10 mg SLOW IVP Q2H PRN PRN Reason: SBP > 180 or DBP > 105 Last Admin: 07/24/18 22:00 Dose: 10 mg Loperamide HCl (Imodium) 2 mg PO PRN PRN PRN Reason: Diarrhea/Loose Stools Mineral Oil/White Petrolatum (Eucerin Cream) 0 gm TOP BIDPRN PRN PRN Reason: Dry Skin Ondansetron HCl (Zofran Odt) 4 mg PO Q6H PRN PRN Reason: Nausea/Vomiting Ondansetron HCl (Zofran) 4 mg IVP Q6H PRN PRN Reason: Nausea/Vomiting Pantoprazole Sodium (Protonix) 40 mg PO DAILY [facility] Last Admin: 07/27/18 09:13 Dose: 40 mg Sodium Chloride (Flush - Normal Saline) 10 ml IVF Q12HR [facility] Last Admin: 07/27/18 09:14 Dose: Not Given Sodium Chloride (Flush - Normal Saline) 10 ml IVF PRN PRN PRN Reason: Saline Flush Sodium Chloride ([place] Nasal [place] 0.65%) 0 ml EA NARE QIDPRN PRN PRN Reason: Nasal Congestion Throat Lozenges (Cepastat Lozenges) 1 thomas PO Q2H PRN PRN Reason: Sore Throat Zolpidem Tartrate (Ambien) 5 mg PO HSPRN PRN PRN Reason: Insomnia
--- NOTE | 2018-07-27 13:05 | RAD ---
MODIFIED BARIUM SWALLOW: Date: 07/27/18 HISTORY: Dysphagia, following cerebral infarction. EXPOSURE: 1.5 minutes. FINDINGS: In the presence of a speech pathologist, the patient was administered thin liquid, nectar-thick, pure e, and solid consistencies. FINDINGS: There is penetration and aspiration of the thin liquid consistency. There is penetration with a necta r-thick and solid consistency. There is premature spilling and pooling in the vallecula and piriform sinuses with all consistencies. IMPRESSION: Please refer to the speech pathology report for feeding recommendations. POS: [facility]
[2018-07-27] MEDS: Atorvastatin Calcium 40 MG TAB PO SCH (20:47)
[2018-07-28] MEDS: Aspirin 325 MG TAB PO SCH (08:34)
[2018-07-28] MEDS: Lisinopril/Hydrochlorothiazide 20 mg/12.5 mg Tablet PO SCH (08:34)
[2018-07-28] MEDS: Estradiol 1 MG TAB PO SCH (08:34)
[2018-07-28] MEDS: Citalopram 20 MG TAB PO SCH (08:34)
[2018-07-28] MEDS: Amlodipine 5 MG TAB PO SCH (08:34)
--- NOTE | 2018-07-28 11:45 | PDOC.PN ---
- Subjective Encounter Start Date: 07/28/18 Encounter Start Time: 07:10 Patient seen and examined. No new complaints. No overnight events - Objective MAR Reviewed: Yes Vital Signs & Weight: Vital Signs (12 hours) Temp Pulse Pulse Pulse Resp BP BP 07/28/18 11:27 98.5 F 61 18 07/28/18 11:03 61 65 124/87 143/84 H 07/28/18 08:34 58 L 07/28/18 08:00 98.4 F 58 L 18 07/28/18 04:00 98.7 F 61 16 BP Pulse Ox 07/28/18 11:27 124/87 94 L 07/28/18 11:03 07/28/18 08:34 07/28/18 08:00 160/95 H 94 L 07/28/18 04:00 143/96 H 95 Weight Weight 157 lb Most Recent Monitor Data Heart Rate from ECG 67 NIBP 156/93 NIBP BP-Mean 114 Respiration from ECG 20 SpO2 95 I&O: 07/27/18 07/28/18 07/29/18 06:59 06:59 06:59 Intake Total 840 720 Balance 840 720 Result Diagrams: 07/23/18 09:32 07/24/18 04:24 EKG Reviewed by me: Yes Phys Exam - Physical Examination Constitutional: NAD HEENT: PERRLA, moist MMs, sclera anicteric Neck: no JVD, supple Respiratory: no wheezing, no rales, no rhonchi Cardiovascular: RRR, no significant murmur, no rub Gastrointestinal: soft, non-tender, no distention, positive bowel sounds Musculoskeletal: no edema, pulses present Neurological: moves all 4 limbs aphasia Psychiatric: normal affect, A&O x 3 Skin: no rash, normal turgor Dx/Plan (1) Left acute arterial ischemic stroke, MCA (middle cerebral artery) Code(s): I63.512 - CEREB INFRC D/T UNSP OCCLS OR STENOS OF LEFT MID CEREB ART Status: Acute (2) Anxiety and depression Code(s): F41.9 - ANXIETY DISORDER, UNSPECIFIED; F32.9 - MAJOR DEPRESSIVE DISORDER, SINGLE EPISODE, UNSPECIFIED Status: Chronic (3) Dyslipidemia Code(s): E78.5 - HYPERLIPIDEMIA, UNSPECIFIED Status: Chronic (4) GERD (gastroesophageal reflux disease) Code(s): K21.9 - GASTRO-ESOPHAGEAL REFLUX DISEASE WITHOUT ESOPHAGITIS Status: Chronic (5) Hypertension Code(s): I10 - ESSENTIAL (PRIMARY) HYPERTENSION Status: Chronic - Plan cont current plan of care, PT/OT, psychosocial rehabilitation counselor, speech therapy * medication reviewed as below * symptomatic treatment * await rehab bed availability. Review of Systems - Review of Systems ENT: negative: Ear Pain, Ear Discharge, Nose Pain, Nose Discharge, Nose Congestion, Mouth Pain, Mouth Swelling, Throat Pain, Throat Swelling, Other Respiratory: negative: Cough, Dry, Shortness of Breath, Hemoptysis, SOB with Excertion, Pleuritic Pain, Sputum, Wheezing Cardiovascular: negative: chest pain, palpitations, orthopnea, paroxysmal nocturnal dyspnea, edema, light headedness, other Gastrointestinal: negative: Nausea, Vomiting, Abdominal Pain, Diarrhea, Constipation, Melena, Hematochezia, Other Genitourinary: negative: Dysuria, Frequency, Incontinence, Hematuria, Retention , Other Musculoskeletal: negative: Neck Pain, Shoulder Pain, Arm Pain, Back Pain, Hand Pain, Leg Pain, Foot Pain, Other - Medications/Allergies Allergies/Adverse Reactions: Allergies Allergy/AdvReac Type Severity Reaction Status Date / Time No Known Allergies Allergy Verified 07/23/18 12:45 Medications: Current Medications Acetaminophen (Tylenol) 650 mg PO Q6H PRN PRN Reason: Headache/Fever/Mild Pain (1-3) Last Admin: 07/25/18 11:53 Dose: 650 mg Acetaminophen (Tylenol) 650 mg OR Q4H PRN PRN Reason: Fever > 101 Amlodipine Besylate (Norvasc) 5 mg PO DAILY [facility] Last Admin: 07/28/18 08:34 Dose: 5 mg Artificial Tears (Tears Naturale) 2 drop EA EYE PRN PRN PRN Reason: Dry Eyes Aspirin (Aspirin) 325 mg PO DAILY [facility] Last Admin: 07/28/18 08:34 Dose: 325 mg Atorvastatin Calcium (Lipitor) 40 mg PO HS [facility] Last Admin: 07/27/18 20:47 Dose: 40 mg Bisacodyl (Dulcolax) 10 mg OR DAILYPRN PRN PRN Reason: Constipation Calcium Carbonate (Tums) 1,000 mg PO Q4H PRN PRN Reason: Heartburn or Indigestion Citalopram Hydrobromide (Celexa) 40 mg PO DAILY [facility] Last Admin: 07/28/18 08:34 Dose: 40 mg Estradiol (Estrace) 0.5 mg PO DAILY [facility] Last Admin: 07/28/18 08:34 Dose: 0.5 mg Guaifenesin (Robitussin Sf) 200 mg PO Q4H PRN PRN Reason: Cough Lisinopril/HCTZ (Prinizide 20-12.5) 1 tab PO DAILY [facility] Last Admin: 07/28/18 08:34 Dose: 1 tab Hydralazine HCl (Apresoline) 10 mg SLOW IVP Q2H PRN PRN Reason: SBP>170 Last Admin: 07/25/18 16:35 Dose: 10 mg Labetalol HCl (Normodyne) 10 mg SLOW IVP Q2H PRN PRN Reason: SBP > 180 or DBP > 105 Last Admin: 07/24/18 22:00 Dose: 10 mg Loperamide HCl (Imodium) 2 mg PO PRN PRN PRN Reason: Diarrhea/Loose Stools Mineral Oil/White Petrolatum (Eucerin Cream) 0 gm TOP BIDPRN PRN PRN Reason: Dry Skin Ondansetron HCl (Zofran Odt) 4 mg PO Q6H PRN PRN Reason: Nausea/Vomiting Ondansetron HCl (Zofran) 4 mg IVP Q6H PRN PRN Reason: Nausea/Vomiting Pantoprazole Sodium (Protonix) 40 mg PO DAILY [facility] Last Admin: 07/28/18 08:35 Dose: 40 mg Sodium Chloride (Flush - Normal Saline) 10 ml IVF Q12HR [facility] Last Admin: 07/28/18 08:34 Dose: 10 ml Sodium Chloride (Flush - Normal Saline) 10 ml IVF PRN PRN PRN Reason: Saline Flush Sodium Chloride ([place] Nasal [place] 0.65%) 0 ml EA NARE QIDPRN PRN PRN Reason: Nasal Congestion Throat Lozenges (Cepastat Lozenges) 1 thomas PO Q2H PRN PRN Reason: Sore Throat Zolpidem Tartrate (Ambien) 5 mg PO HSPRN PRN PRN Reason: Insomnia
[2018-07-28] MEDS: Atorvastatin Calcium 40 MG TAB PO SCH (20:03)
[2018-07-29] MEDS: Lisinopril/Hydrochlorothiazide 20 mg/12.5 mg Tablet PO SCH (08:55)
[2018-07-29] MEDS: Citalopram 20 MG TAB PO SCH (08:55)
[2018-07-29] MEDS: Amlodipine 5 MG TAB PO SCH (08:56)
[2018-07-29] MEDS: Estradiol 1 MG TAB PO SCH (08:56)
[2018-07-29] MEDS: Aspirin 325 MG TAB PO SCH (08:56)
[2018-07-29 11:27] VITALS: BP 135/78; TEMP 98.5
--- NOTE | 2018-07-29 11:29 | DIS ---
DATE OF ADMISSION: 07/23/2018 DATE OF DISCHARGE: 07/29/2018 PRIMARY CARE PHYSICIAN: Selin Nguyen. DISCHARGE DISPOSITION: Inpatient rehab. PRIMARY DISCHARGE DIAGNOSIS: Acute left arterial ischemic stroke MCA territory, status post mechanical thrombectomy. SECONDARY DISCHARGE DIAGNOSES: 1. Hypertension. 2. Gastroesophageal reflux disease. 3. Dyslipidemia. 4. Anxiety. 5. Depression. PRIMARY PROCEDURE/OPERATION: Mechanical thrombectomy by Dr. Chavis, radiological investigation, head and neck CT angiography, CT brain x2, echocardiography, modified barium swallow. SIGNIFICANT LABORATORY DATA: Hemoglobin 13.4, INR 1.0, and creatinine 0.79. DISCHARGE MEDICATIONS: 1. Celexa 40 mg daily. 2. Estradiol 0.5 mg daily. 3. Prinzide 20/12.5 one tablet daily. 4. Protonix 40 mg daily. 5. Amlodipine 5 mg p.o. daily. 6. Lipitor 40 mg p.o. at bedtime. 7. Aspirin 325 mg p.o. daily. CONTRAINDICATION: None. CODE STATUS: Full code. INPATIENT CONSULTANTS: Dr. El Chavis was consulted for mechanical thrombectomy. Dr. Cee was seeing this patient in ICU. Dr. Primo Chu, Neurologist, was consulted while in hospital. TEST RESULTS PENDING ON DISCHARGE: None. ALLERGIES: NO KNOWN DRUG ALLERGIES. DISCHARGE PLAN: Posthospital, the patient will follow up with primary care physician as instructed. HOSPITAL COURSE: A 57-year-old female, who was admitted by Dr. Whiteside. Please see his H and P for further details. The patient was having acute right-sided weakness with expressive and comprehensive aphasia. The patient had CT brain with ischemic penumbra. The patient had mechanical thrombus in MCA territory. Dr. Chavis did a mechanical thrombectomy. Surprisingly, after that procedure, the patient had dramatic improvement. Only, her problem was expressive and comprehensive aphasia. The patient also had modified barium swallow study while in hospital and based on that, the patient was on modified diet. We started amlodipine for blood pressure. We started statin therapy for high cholesterol. The patient is doing very well. The patient is planned for discharge to inpatient rehabilitation. We are waiting for her insurance authorization. I have seen and examined the patient at bedside today. Her neurological examination is pretty much unremarkable other than aphasia. Her vitals are stable. She will follow up with the above-mentioned device sales consultant after discharge. Once we have approval from insurance and rehab, then patient is medically stable for discharge to rehab facility. Job ID: [id number]
[2018-07-29 12:07] VITALS: BMI 26.9
--- NOTE | 2018-07-29 12:43 | PDOC.PN ---
- Subjective Encounter Start Date: 07/29/18 Encounter Start Time: 10:50 Patient seen and examined. No new complaints. No overnight events - Objective MAR Reviewed: Yes Vital Signs & Weight: Vital Signs (12 hours) Temp Pulse Resp BP BP Pulse Ox 07/29/18 11:27 98.5 F 63 18 135/78 96 07/29/18 08:56 65 124/94 H 07/29/18 08:55 65 124/94 H 07/29/18 08:00 97.9 F 65 18 124/94 H 96 07/29/18 04:00 98.5 F 65 18 122/84 95 Weight Admit Weight 157 lb Weight 157 lb Most Recent Monitor Data Heart Rate from ECG 67 NIBP 156/93 NIBP BP-Mean 114 Respiration from ECG 20 SpO2 95 I&O: 07/28/18 07/29/18 07/30/18 06:59 06:59 06:59 Intake Total 720 Output Total 500 Balance 720 -500 Result Diagrams: 07/23/18 09:32 07/24/18 04:24 EKG Reviewed by me: Yes Phys Exam - Physical Examination Constitutional: NAD HEENT: moist MMs, sclera anicteric Neck: no JVD, supple Respiratory: no wheezing, no rales, no rhonchi Cardiovascular: RRR, no significant murmur, no rub Gastrointestinal: soft, non-tender, no distention, positive bowel sounds Musculoskeletal: no edema, pulses present Neurological: non-focal, normal sensation Lymphatic: no nodes Psychiatric: normal affect, A&O x 3 Skin: no rash, normal turgor Dx/Plan (1) Left acute arterial ischemic stroke, MCA (middle cerebral artery) Code(s): I63.512 - CEREB INFRC D/T UNSP OCCLS OR STENOS OF LEFT MID CEREB ART Status: Acute (2) Anxiety and depression Code(s): F41.9 - ANXIETY DISORDER, UNSPECIFIED; F32.9 - MAJOR DEPRESSIVE DISORDER, SINGLE EPISODE, UNSPECIFIED Status: Chronic (3) Dyslipidemia Code(s): E78.5 - HYPERLIPIDEMIA, UNSPECIFIED Status: Chronic (4) GERD (gastroesophageal reflux disease) Code(s): K21.9 - GASTRO-ESOPHAGEAL REFLUX DISEASE WITHOUT ESOPHAGITIS Status: Chronic (5) Hypertension Code(s): I10 - ESSENTIAL (PRIMARY) HYPERTENSION Status: Chronic - Plan cont current plan of care, PT/OT, licensed social worker * medication reviewed as below * symptomatic treatment * see discharge ramesh. Review of Systems - Review of Systems ENT: negative: Ear Pain, Ear Discharge, Nose Pain, Nose Discharge, Nose Congestion, Mouth Pain, Mouth Swelling, Throat Pain, Throat Swelling, Other Respiratory: negative: Cough, Dry, Shortness of Breath, Hemoptysis, SOB with Excertion, Pleuritic Pain, Sputum, Wheezing Cardiovascular: negative: chest pain, palpitations, orthopnea, paroxysmal nocturnal dyspnea, edema, light headedness, other Gastrointestinal: negative: Nausea, Vomiting, Abdominal Pain, Diarrhea, Constipation, Melena, Hematochezia, Other Genitourinary: negative: Dysuria, Frequency, Incontinence, Hematuria, Retention , Other Musculoskeletal: negative: Neck Pain, Shoulder Pain, Arm Pain, Back Pain, Hand Pain, Leg Pain, Foot Pain, Other - Medications/Allergies Allergies/Adverse Reactions: Allergies Allergy/AdvReac Type Severity Reaction Status Date / Time No Known Allergies Allergy Verified 07/23/18 12:45 Medications: Current Medications Acetaminophen (Tylenol) 650 mg PO Q6H PRN PRN Reason: Headache/Fever/Mild Pain (1-3) Last Admin: 07/25/18 11:53 Dose: 650 mg Acetaminophen (Tylenol) [address] Q4H PRN PRN Reason: Fever > 101 Amlodipine Besylate (Norvasc) 5 mg PO DAILY [facility] Last Admin: 07/29/18 08:56 Dose: 5 mg Artificial Tears (Tears Naturale) 2 drop EA EYE PRN PRN PRN Reason: Dry Eyes Aspirin (Aspirin) 325 mg PO DAILY [facility] Last Admin: 07/29/18 08:56 Dose: 325 mg Atorvastatin Calcium (Lipitor) 40 mg PO HS [facility] Last Admin: 07/28/18 20:03 Dose: 40 mg Bisacodyl (Dulcolax) [address] DAILYPRN PRN PRN Reason: Constipation Calcium Carbonate (Tums) 1,000 mg PO Q4H PRN PRN Reason: Heartburn or Indigestion Citalopram Hydrobromide (Celexa) 40 mg PO DAILY [facility] Last Admin: 07/29/18 08:55 Dose: 40 mg Estradiol (Estrace) 0.5 mg PO DAILY [facility] Last Admin: 07/29/18 08:56 Dose: 0.5 mg Guaifenesin (Robitussin Sf) 200 mg PO Q4H PRN PRN Reason: Cough Lisinopril/HCTZ (Prinizide 20-12.5) 1 tab PO DAILY [facility] Last Admin: 07/29/18 08:55 Dose: 1 tab Hydralazine HCl (Apresoline) 10 mg SLOW IVP Q2H PRN PRN Reason: SBP>170 Last Admin: 07/25/18 16:35 Dose: 10 mg Labetalol HCl (Normodyne) 10 mg SLOW IVP Q2H PRN PRN Reason: SBP > 180 or DBP > 105 Last Admin: 07/24/18 22:00 Dose: 10 mg Loperamide HCl (Imodium) 2 mg PO PRN PRN PRN Reason: Diarrhea/Loose Stools Mineral Oil/White Petrolatum (Eucerin Cream) 0 gm TOP BIDPRN PRN PRN Reason: Dry Skin Ondansetron HCl (Zofran Odt) 4 mg PO Q6H PRN PRN Reason: Nausea/Vomiting Ondansetron HCl (Zofran) 4 mg IVP Q6H PRN PRN Reason: Nausea/Vomiting Pantoprazole Sodium (Protonix) 40 mg PO DAILY [facility] Last Admin: 07/29/18 08:56 Dose: 40 mg Sodium Chloride (Flush - Normal Saline) 10 ml IVF Q12HR [facility] Last Admin: 07/29/18 07:59 Dose: Not Given Sodium Chloride (Flush - Normal Saline) 10 ml IVF PRN PRN PRN Reason: Saline Flush Sodium Chloride ([place] Nasal [place] 0.65%) 0 ml EA NARE QIDPRN PRN PRN Reason: Nasal Congestion Throat Lozenges (Cepastat Lozenges) 1 thomas PO Q2H PRN PRN Reason: Sore Throat Zolpidem Tartrate (Ambien) 5 mg PO HSPRN PRN PRN Reason: Insomnia
== END 2018-07-29 17:34 | DRG 24 ==
LOC: ERS 09:28 → CCU 11:01 → 2SE 07-24 20:10
PROVIDERS: ADMIT Neurological Surgery; ATTEND Internal Medicine
PROC: 03CG3ZZ Extirpation of Matter from Intracranial Artery, Percutaneous Approach (ICD-10-PCS; principal; 2018-07-23)
DX: I63.512 Cerebral infarction due to unspecified occlusion or stenosis of left middle cerebral artery (principal); G81.91 Hemiplegia, unspecified affecting right dominant side; R47.01 Aphasia; R29.730 NIHSS score 30; R13.10 Dysphagia, unspecified; I10 Essential (primary) hypertension; E78.00 Pure hypercholesterolemia, unspecified; K21.9 Gastro-esophageal reflux disease without esophagitis; F41.8 Other specified anxiety disorders; F10.10 Alcohol abuse, uncomplicated
CPT/HCPCS: 0042T; 36217; 36228; 36415; 36416; 37184; 70450; 70496; 74230; 80048; 80053; 80061; 82550; 84484; 85025; 85610; 85730; 93306; 99291; C1757; C1887; J0360; J2001; J2405; J2704; J3411; J3490; J7042; Q9966; Q9967